=== PATIENT | male | born 1995 | race Caucasian/White ===

== ENCOUNTER 2017-08-17 12:04 | Emergency (ER) | payer SELFPAY ==
[~2017-08-17] VITALS: Ht 170.2 cm; Wt 73.0 kg
[2017-08-17 12:06] VITALS: BP 135/75; PULSE 64; RESP 16; TEMP 99.1; O2SAT 99
--- NOTE | 2017-08-17 13:20 | PD ---
HPI Chief Complaint: Injury Time Seen by Provider: 12:27 Travel History International Travel<30 days: No Contact w/Intl Traveler<30days: No Traveled to known affect area: No History of Present Illness HPI 22 year old male here with left wrist, left rib, and right hip pain after he fell from a work truck onto an outreached hand. He denies head injury of LOC. He is not anticoagulated. He denies headache, neck pain, chest pain, shortness of breath, abdominal pain, paresthesia or weakness of the extremities. The vehicle was not moving at the time. The patient is primarily Maltese-speaking and has 2 family members present. He was offered translation services for which she declined requesting that his family translate for him. He reports pain in the left wrist which is constant, nonradiating worse with movement and relieved with rest. He reports pain in the left lateral ribs which is reproducible on palpation. He reports pain in the right hip but points to the right pelvis which is reproducible to palpation. Symptom severity is moderate. PFSH Past Medical History Medical History: Denies Significant Hx Diminished Hearing: No Tetanus Vaccination: > 5 Years Past Surgical History Surgical History: No Previous Surgery Social History Alcohol Use: No Tobacco Use: No Substance Use: No Allergies-Medications (Allergen,Severity, Reaction): Coded Allergies: No Known Allergies (Unverified , 08/17/17) Reported Meds & Prescriptions Reported Meds & Active Scripts Active [place] (Hydrocodone-Acetaminophen) 5 Mg-325 Mg Tab 1 Tab PO Q6H PRN Review of Systems Except as stated in HPI: all other systems reviewed are Neg General / Constitutional: No: Fever Eyes: No: Visual changes HENT: No: Headaches Cardiovascular: No: Chest Pain or Discomfort Respiratory: No: Shortness of Breath Gastrointestinal: No: Abdominal Pain Genitourinary: No: Dysuria Musculoskeletal: Positive: Pain (left wrist, right hip, left ribs) Skin: No Rash Neurologic: No: Weakness Psychiatric: No: Depression Physical Exam Narrative GENERAL: Alert and well-appearing 22-year-old male. No distress. SKIN: Warm and dry. No abrasions. HEAD: Normocephalic. Atraumatic. EYES: Pupils equal, round, reactive to light. EOMs intact. No injection or drainage. NECK: Supple, trachea midline. No cervical midline tenderness. CARDIOVASCULAR: Regular rate and rhythm. Tenderness to the left anterior/ lateral ribs. No crepitus. RESPIRATORY: Breath sounds equal bilaterally. No accessory muscle use. Equal and even respirations. GASTROINTESTINAL: Abdomen soft, non-tender, nondistended. MUSCULOSKELETAL: No cyanosis, or edema. Left upper extremity: Noticeable swelling and tenderness to the left wrist. No obvious deformity. 2+ radial pulse. Patient is able to flex and extend all digits. Limited range of motion of the wrist due to pain. Normal sensation. Brisk cap refill. Tenderness to the right sacroiliac crest. No hip tenderness. BACK: No spinal tenderness. Without obvious deformity. No CVA tenderness. Data Data Last Documented VS Vital Signs Date Time Temp Pulse Resp B/P (MAP) Pulse Ox O2 Delivery O2 Flow Rate FiO2 08/17/17 12:22 Room Air 08/17/17 12:06 99.1 64 16 135/75 (95) 99 Orders Orders Wrist, Complete ([id number]) (08/17/17 ) Chest, Single Ap (08/17/17 ) Pelvis, Ap Only (Routine) (08/17/17 ) Splint Or Brace Apply/Monitor (08/17/17 13:29) Ed Discharge Order (08/17/17 13:40) Mandatory Outpatient Referral (08/17/17 13:44) Acetamin-Hydrocod 325-5 Mg ([place] 5-325 (08/17/17 13:45) MDM Medical Decision Making Medical Screen Exam Complete: Yes Emergency Medical Condition: Yes Differential Diagnosis Wrist fracture, pelvic fracture, rib fracture, contusion Narrative Course 22 y/o male with left wrist, left rib, right hip pain after he fell from a standing position but nonmoving truck. There was no LOC. The patient is well- appearing. His vital signs are stable. His extremities are neurovascularly intact. Left wrist: Nondisplaced Distal radius fracture Chest x-ray: No abnormalities Pelvis x-ray: No fracture Findings discussed with patient. He was placed in a sugar tong splint. The extremity is neurovascularly intact. Major for a referral for follow-up with orthopedic doctor. Pain medication. Diagnosis Primary Impression: Distal radius fracture, left Qualified Codes: S52.502A - Unspecified fracture of the lower end of left radius, initial encounter for closed fracture Additional Impression: Chest wall contusion Qualified Codes: S20.212A - Contusion of left front wall of thorax, initial encounter Referrals: Orthopedist Additional Instructions: Take [id number] ibuprofen 800 mg every 6 hours as needed for pain. Take the [place] as needed for severe pain. Keep the splint in place until follow-up with orthopedic doctor. Scripts Hydrocodone-Acetaminophen ([place]) 5 Mg-325 Mg Tab 1 TAB PO Q6H Y for PAIN, #12 TAB 0 Refills Prov: Taniya Braxton 08/17/17 Disposition: 01 DISCHARGE HOME Condition: Stable Taniya Braxton Aug 17, 2017 13:20
--- NOTE | 2017-08-17 13:23 | RADRPT ---
EXAM DATE/TIME: 08/17/2017 12:41 [facility] COMPARISON: No previous studies available for comparison. INDICATIONS : Left wrist pain from fall, 2 hours ago. Approximate 7 ft. Lost balance. MEDICAL HISTORY : None. SURGICAL HISTORY : Left elbow dislocation/surgery. ENCOUNTER: Initial ACUITY: 1 day PAIN SCORE: 10/10 LOCATION: Left upper extremity Whole left wrist joint. FINDINGS: There is a complete fracture of the distal radius involving the metaphysis at the junction of the epi physis without any angulation or displacement. CONCLUSION: Distal radial fracture. Dane Perez MD on August 17, 2017 at 13:16 Board Certified Radiologist. This report was verified electronically.
--- NOTE | 2017-08-17 13:24 | RADRPT ---
EXAM DATE/TIME: 08/17/2017 12:41 [facility] COMPARISON: No previous studies available for comparison. INDICATIONS : Lost of balance, fell from the top of the roof of a van. Approximate 7 ft. 2 hours ago. MEDICAL HISTORY : None. SURGICAL HISTORY : Left elbow surgery. ENCOUNTER: Initial ACUITY: 1 day PAIN SCORE: 7/10 LOCATION: Left chest Posterior side. FINDINGS: The lungs are clear without infiltrate, nodule, or mass. There is no appreciable pleural effusion fo r technique. Heart and mediastinum are unremarkable. CONCLUSION: No acute cardiopulmonary disease. Dane Perez MD on August 17, 2017 at 13:21 Board Certified Radiologist. This report was verified electronically.
--- NOTE | 2017-08-17 13:31 | RADRPT ---
EXAM DATE/TIME: 08/17/2017 12:41 [facility] COMPARISON: No previous studies available for comparison. INDICATIONS : Lost of balance. Fell from top of a van. Approximate 7 ft. 2 hours ago. MEDICAL HISTORY : None. SURGICAL HISTORY : Left elbow surgery. ENCOUNTER: Initial ACUITY: 1 day PAIN SCORE: 7/10 LOCATION: Right pelvis Top of anterior superior iliac spine. FINDINGS: No definite fractures, or dislocations are identified. No definite lytic or sclerotic lesion is seen . The joint spaces are well maintained. CONCLUSION: Unremarkable study. Dane Perez MD on August 17, 2017 at 13:28 Board Certified Radiologist. This report was verified electronically.
[2017-08-17] MEDS ORDERED: NORC5TAB PO (13:37)
[2017-08-17] MEDS ORDERED: ACETAMINOPHEN/HYDROcodone 325 MG/5 MG TAB PO ONE (13:45)
== END 2017-08-17 14:12 | disposition home or self-care (01) ==
LOC: PHEFT 12:04
DX: S52.502A Unspecified fracture of the lower end of left radius, initial encounter for closed fracture (principal); S20.219A Contusion of unspecified front wall of thorax, initial encounter; W17.89XA Other fall from one level to another, initial encounter; Y99.0 Civilian activity done for income or pay
CPT/HCPCS: 29125; 71045; 72170; 73110